=== PATIENT | female | born 1960 | race Caucasian/White ===

== ENCOUNTER 2023-07-03 13:34 | Outpatient (CLI) | payer BC | END 2023-07-03 13:35 | disposition home or self-care (01) | LOC: BICMAMMO 13:34 | PROVIDERS: ATTEND Family Medicine | DX: Z13.820 Encounter for screening for osteoporosis (principal); M85.89 Other specified disorders of bone density and structure, multiple sites; Z78.0 Asymptomatic menopausal state | CPT/HCPCS: 77063; 77067; 77080 ==

== ENCOUNTER 2023-07-15 15:34 | Outpatient (CLI) | payer BC | END 2023-07-15 15:35 | disposition home or self-care (01) | LOC: RAD 15:34 | PROVIDERS: ATTEND Internal Medicine Rheumatology | DX: R07.9 Chest pain, unspecified (principal) | CPT/HCPCS: 71046 ==

== ENCOUNTER 2025-07-14 09:55 | Outpatient (CLI) | payer MEDICARE | END 2025-07-14 09:56 | disposition home or self-care (01) | LOC: BICMAMMO 09:55 | PROVIDERS: ATTEND Family Medicine | DX: Z12.31 Encounter for screening mammogram for malignant neoplasm of breast (principal); M85.849 Other specified disorders of bone density and structure, unspecified hand; M85.851 Other specified disorders of bone density and structure, right thigh; M85.852 Other specified disorders of bone density and structure, left thigh; Z85.828 Personal history of other malignant neoplasm of skin | CPT/HCPCS: 77063; 77067; 77080 ==

== ENCOUNTER 2025-07-25 08:27 | Outpatient (CLI) | payer MEDICARE ==
[2025-07-25 09:27] LABS: Estimated GFR - POC 82.0
== END 2025-07-25 08:28 | disposition home or self-care (01) ==
LOC: CT 08:27
PROVIDERS: ATTEND Colon & Rectal Surgery
DX: C21.0 Malignant neoplasm of anus, unspecified (principal); N20.0 Calculus of kidney
CPT/HCPCS: 36415; 71260; 74177; 82565